=== PATIENT | male | born 1980 | race Caucasian/White ===

== ENCOUNTER 2017-02-16 15:27 | Inpatient (IN) | payer OTHER ==
[~2017-02-16] VITALS: Ht 188 cm; Wt 122.7 kg
[~2017-02-16 15:27] MED LIST: LITH8SYP PO; LORA-474 PO; PRAZ1 PO; PRIL20CA9 PO; SERO400T PO; ZOLO50TA PO
[2017-02-16 15:29] VITALS: BP 166/112; PULSE 98; RESP 24; TEMP 98.9; O2SAT 98
--- NOTE | 2017-02-16 16:10 | PD ---
Physical Exam Time Seen by Provider: 16:10 Narrative 36 y/o male here for evaluation of 2 days vomiting; today he was stuttering and muttering according to . Vital signs reviewed. Seen at triage desk. Awaiting bed placement. Data Data Last Documented VS Vital Signs Date Time Temp Pulse Resp B/P Pulse Ox O2 Delivery O2 Flow Rate FiO2 02/16/17 15:29 98.9 98 24 166/[address] [facility] Medical Record Reviewed: Yes Supervised Visit with FRANCES: Pawan Dozier Feb 16, 2017 16:10
[2017-02-16] MEDS ORDERED: PRIL20TA2 (20:13)
[2017-02-16] MEDS ORDERED: PRAZ5CAP PO (20:13)
[2017-02-16 20:14] VITALS: BP 164/113; PULSE 63; RESP 20; O2SAT 100
[2017-02-16] MEDS ORDERED: SUBO8MIS SL (20:14)
[2017-02-16] MEDS ORDERED: ONDANSETRON HCL 4 MG/2 ML VIAL IM ONE (20:30)
[2017-02-16 21:54] LABS: AUTOMATED NEUTROPHIL # 1.7 TH/MM3 (1.8-7.7); BASOPHIL # 0.1 TH/MM3 (0-0.2); BASOPHIL % 1.3 % (0.0-2.0); EOSINOPHIL # 0.2 TH/MM3 (0-0.4); EOSINOPHIL % 3.9 % (0.0-4.0); HEMATOCRIT 40.5 % (39.0-51.0); HEMO FLAGS DIFF FINAL; LYMPH % 44.9 % (9.0-44.0); LYMPHOCYTE # 1.9 TH/MM3 (1.0-4.8); MEAN CELL VOLUME 80.7 FL (80.0-100.0); MEAN CORPUSCULAR HEMOGLOBIN 26.7 PG (27.0-34.0); MEAN CORPUSCULAR HGB CONC 33.1 % (32.0-36.0); NEUT % 39.9 % (16.0-70.0); PLATELET COUNT 332 TH/MM3 (150-450); RED BLOOD COUNT 5.02 MIL/MM3 (4.50-5.90); RED CELL DISTRIBUTION WIDTH 14.3 % (11.6-17.2); WHITE BLOOD COUNT 4.3 TH/MM3 (4.0-11.0)
[2017-02-16 22:04] LABS: APTT (PATIENT) 26.8 SEC (24.3-30.1); PROTHROMBIN TIME - PATIENT 11.1 SEC (9.8-11.6)
[2017-02-16 22:08] LABS: ANION GAP 8 MEQ/L (5-15); AST (GOT) 19 U/L (15-37); BICARBONATE 27.4 MEQ/L (21.0-32.0); BLOOD UREA NITROGEN 8 MG/DL (7-18); CHLORIDE 104 MEQ/L (98-107); GLOMERULAR FILTRATION RATE 81 ML/MIN (>89); POTASSIUM 3.3 MEQ/L (3.5-5.1); SODIUM (NA) 139 MEQ/L (136-145)
[2017-02-16 22:09] LABS: ALT (GPT) 29 U/L (12-78)
[2017-02-16 22:11] LABS: ALKALINE PHOSPHATASE 126 U/L (45-117); TOTAL BILIRUBIN ADULT 0.8 MG/DL (0.2-1.0)
[2017-02-16] MEDS ORDERED: SODIUM CHLOR 0.9% 1000 ML INJ 1,000 ML IV ONE (22:15)
[2017-02-16] MEDS ORDERED: LORazepam 2 MG/ML VIAL IV PUSH ONE (22:15)
[2017-02-16 22:31] VITALS: BP 148/87; PULSE 71; RESP 18; O2SAT 98
--- NOTE | 2017-02-16 22:40 | RADRPT ---
EXAM DATE/TIME: 02/16/2017 22:18 [place] COMPARISON: CT BRAIN W/O CONTRAST, July 03, 2016, 9:08. INDICATIONS : Altered mental status, slurred speech and left arm numbness. RADIATION DOSE: 56.35 CTDIvol (mGy) MEDICAL HISTORY : None SURGICAL HISTORY : Tympanostamy tube. ENCOUNTER: Initial ACUITY: 2 days PAIN SCALE: 0/10 LOCATION: cranial TECHNIQUE: Multiple contiguous axial images were obtained of the head. Using automated exposure control and adj ustment of the mA and/or kV according to patient size, radiation dose was kept as low as reasonably a chievable to obtain optimal diagnostic quality images. DICOM format image data is available electro nically for review and comparison. FINDINGS: There is no evidence for intracranial hemorrhage, mass effect, mass lesions, edema, or extra-axial fl uid collections. The visualized bony structures appear intact. The ventricles are normal size for t he patient's age. There are no signs of acute infarction for technique. CONCLUSION: Unremarkable study. Kristin Mcclellan MD on February 16, 2017 at 22:37 Board Certified Radiologist. This report was verified electronically.
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
[2017-02-16 23:26] LABS: AMPHETAMINE, URINE NEG (NEG); BARBITURATES, URINE NEG (NEG); COCAINE, URINE NEG (NEG)
[2017-02-16 23:27] LABS: BLOOD, URINE NEG (NEG); COMMENT (UR) CULT NOT INDICATED; CULTURE IF INDICATED CULT NOT INDICATED; GLUCOSE,URINE NEG (NEG); KETONE, URINE NEG (NEG); MUCUS URINE FEW /lpf (OCC); NITRITE,URINE NEG (NEG); URINE COLOR YELLOW (YELLW/STRAW)
[2017-02-17] VITALS (7 sets, daily range): BP systolic 117–169; BP diastolic 74–95; PULSE 59–78; RESP 16–18; TEMP 96.7–98.1; O2SAT 96–99
[2017-02-17] MEDS ORDERED: MAGNESIUM HYDROXIDE SUSP 30 ML CUP PO PRN (00:30)
[2017-02-17] MEDS ORDERED: SENNOSIDES 8.6 MG TAB PO PRN (00:30)
[2017-02-17] MEDS ORDERED: NALOXONE HCL 0.4 MG/ML AMP IV PRN (00:30)
[2017-02-17] MEDS ORDERED: BISACODYL 10 MG SUPP RECTAL PRN (00:30)
[2017-02-17] MEDS ORDERED: SODIUM CHLORIDE 0.9% FLUSH 10 ML FLUSH IV FLUSH PRN (00:30)
[2017-02-17] MEDS ORDERED: LACTULOSE SYRUP 20 GM/30 ML CUP PO PRN (00:30)
[2017-02-17] MEDS ORDERED: LORazepam 1 MG TAB PO PRN (00:45)
[2017-02-17] MEDS: SERTRALINE HCL 50 MG TAB PO SCH (08:11)
[2017-02-17] MEDS: DOCUSATE SODIUM 50 MG/SENNA 8.6 MG TAB PO SCH ×2 (08:11→20:17)
[2017-02-17] MEDS: LITHIUM ORAL SOLUTION 300 MG/5 ML CUP PO SCH ×3 (08:12→17:52)
[2017-02-17] MEDS ORDERED: PRAZOSIN HCL 5 MG CAP PO SCH ×2 (09:00→21:00)
[2017-02-17] MEDS ORDERED: ONDANSETRON HCL 4 MG/2 ML VIAL IV PUSH PRN (10:30)
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
[2017-02-17] MEDS: PANTOPRAZOLE SOD 40 MG DELAYED RELEASE TAB PO SCH (12:52)
[2017-02-17] MEDS: D5-NS + KCL 20 MEQ INJ 1,000 ML IV SCH (12:54)
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
[2017-02-17] MEDS ORDERED: GADODIAMIDE PF 287 MG/ML 20 ML VIAL (for RAD MRI) IV ONE (19:49)
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
[2017-02-17] MEDS: SODIUM CHLORIDE 0.9% FLUSH 10 ML FLUSH IV FLUSH SCH (20:17)
--- NOTE | 2017-02-17 20:43 | RADRPT ---
EXAM DATE/TIME: 02/17/2017 19:30 [place] COMPARISON: CT BRAIN W/O CONTRAST, February 16, 2017, 22:18. INDICATIONS : Slurred speech. CONTRAST: 20 cc Omniscan (gadodiamide) IV MEDICAL HISTORY : Pancreatitis. SURGICAL HISTORY : Cholecystectomy. Cleft palat repair, nasal revision, jaw surgery ENCOUNTER: Initial ACUITY: 1 day PAIN SCORE: 0/10 LOCATION: cranial TECHNIQUE: Multiplanar, multisequence MRI of the brain was performed both prior to and following the administrat ion of paramagnetic contrast. FINDINGS: CEREBRUM: The ventricles are normal for age. No evidence of midline shift, mass lesion, hemorrhage or acute in farction. No extraaxial fluid collections are seen. The pituitary gland and suprasellar cistern are normal in configuration. WHITE MATTER: No significant signal abnormalities are seen in the white matter. POSTERIOR FOSSA: The cerebellum and brainstem are intact. The 4th ventricle is midline. The cerebellopontine angle is unremarkable. The cerebellar tonsils are normal in position. DIFFUSION IMAGING: No focal areas of restricted diffusion are seen. No evidence of acute infarction. EXTRACRANIAL: The visualized portions of the orbits and paranasal sinuses are unremarkable. POST-CONTRAST: No abnormal areas of parenchymal or dural enhancement. No evidence of blood-brain barrier breakdown. CONCLUSION: Normal MRI of the brain. Сергей Caraballo MD on February 17, 2017 at 20:41 Board Certified Radiologist. This report was verified electronically.
[2017-02-17] MEDS ORDERED: QUEtiapine FUMARATE 100 MG TAB PO SCH (21:00)
[2017-02-17] MEDS: BUPRENORPHINE/NALOXONE 8 MG/2 MG SUBLINGUAL TAB SL SCH (21:56)
[2017-02-18] VITALS: BP 129/55; PULSE 80; RESP 17; TEMP 96.9; O2SAT 97
[2017-02-18 04:00] VITALS: BP 127/64; PULSE 72; RESP 16; TEMP 96.9; O2SAT 94
[2017-02-18 06:49] LABS: AUTOMATED NEUTROPHIL # 1.2 TH/MM3 (1.8-7.7); BASOPHIL # 0.1 TH/MM3 (0-0.2); BASOPHIL % 1.9 % (0.0-2.0); EOSINOPHIL # 0.3 TH/MM3 (0-0.4); EOSINOPHIL % 8.4 % (0.0-4.0); HEMATOCRIT 34.9 % (39.0-51.0); HEMO FLAGS DIFF FINAL; LYMPH % 48.5 % (9.0-44.0); LYMPHOCYTE # 1.9 TH/MM3 (1.0-4.8); MEAN CELL VOLUME 81.6 FL (80.0-100.0); MEAN CORPUSCULAR HEMOGLOBIN 26.4 PG (27.0-34.0); MEAN CORPUSCULAR HGB CONC 32.3 % (32.0-36.0); MONO % 10.2 % (0.0-8.0); PLATELET COUNT 240 TH/MM3 (150-450); RED BLOOD COUNT 4.27 MIL/MM3 (4.50-5.90); RED CELL DISTRIBUTION WIDTH 14.1 % (11.6-17.2)
[2017-02-18 07:02] LABS: ALKALINE PHOSPHATASE 90 U/L (45-117); ALT (GPT) 24 U/L (12-78); ANION GAP 9 MEQ/L (5-15); AST (GOT) 19 U/L (15-37); BICARBONATE 26.2 MEQ/L (21.0-32.0); BLOOD UREA NITROGEN 6 MG/DL (7-18); CHLORIDE 110 MEQ/L (98-107); GLOMERULAR FILTRATION RATE 78 ML/MIN (>89); POTASSIUM 3.6 MEQ/L (3.5-5.1); SODIUM (NA) 145 MEQ/L (136-145); TOTAL BILIRUBIN ADULT 0.3 MG/DL (0.2-1.0)
[2017-02-18 08:00] VITALS: BP 117/65; PULSE 66; RESP 18; TEMP 97.7; O2SAT 99
[2017-02-18 09:00] VITALS: PULSE 73
[2017-02-18] MEDS: DOCUSATE SODIUM 50 MG/SENNA 8.6 MG TAB PO SCH (09:00)
[2017-02-18] MEDS: SODIUM CHLORIDE 0.9% FLUSH 10 ML FLUSH IV FLUSH SCH (09:00)
[2017-02-18] MEDS: LITHIUM ORAL SOLUTION 300 MG/5 ML CUP PO SCH ×2 (09:01→12:47)
[2017-02-18] MEDS: PANTOPRAZOLE SOD 40 MG DELAYED RELEASE TAB PO SCH (09:01)
[2017-02-18] MEDS: SERTRALINE HCL 50 MG TAB PO SCH (09:01)
[2017-02-18] MEDS: BUPRENORPHINE/NALOXONE 8 MG/2 MG SUBLINGUAL TAB SL SCH (09:01)
[2017-02-18] MEDS: D5-NS + KCL 20 MEQ INJ 1,000 ML IV SCH (09:08)
--- NOTE | 2017-02-18 11:22 | HHI.PR ---
Subjective Remarks slept well back to nl acc to pt and Objective Vital Signs Date Time Temp Pulse Resp B/P Pulse Ox O2 Delivery O2 Flow Rate FiO2 02/18/17 08:00 97.7 66 18 117/65 99 02/18/17 04:00 96.9 72 16 127/64 94 02/18/17 00:00 96.9 80 17 129/55 97 02/17/17 20:48 78 02/17/17 19:00 97.6 77 16 156/93 99 02/17/17 15:51 96.8 68 18 131/74 96 02/17/17 11:32 98.0 74 18 142/95 97 I/O 02/17/17 02/17/17 02/17/17 02/18/17 02/18/17 02/18/17 07:00 15:00 23:00 07:00 15:00 23:00 Intake Total 0 ml 960 ml 280 ml 940 ml Balance 0 ml 960 ml 280 ml 940 ml Intake Oral 0 ml 960 ml 480 ml IV Total 280 ml 460 ml # Voids 0 4 2 # Bowel Movements 2 0 Result Diagram: 02/18/17 0546 02/18/17 0546 Objective Remarks awake alert nl speech moves all well Assessment and Plan Assessment and Plan imp mri nl labs nl pancreatic labs nl eeg prelim neg ok dc by ct Claudio Graham MD Feb 18, 2017 11:22
[2017-02-18 12:00] VITALS: BP 139/91; PULSE 74; RESP 18; TEMP 97; O2SAT 100
--- NOTE | 2017-02-18 14:48 | HHI.DS ---
Discharge Summary Admission Date Feb 16, 2017 at 23:58 Admitting Diagnosis mental status change pt had not slept for several days suffers with PTSD CBC/BMP: 02/18/17 0546 02/18/17 0546 Significant Findings Laboratory Tests Test 02/16/17 02/16/17 02/17/17 02/17/17 21:15 22:50 01:25 21:35 Mean Corpuscular Hemoglobin 26.7 PG (27.0-34.0) Lymphocytes (%) (Auto) 44.9 % (9.0-44.0) Monocytes (%) (Auto) 10.0 % (0.0-8.0) Neutrophils # (Auto) 1.7 TH/MM3 (1.8-7.7) Potassium Level 3.3 MEQ/L (3.5-5.1) Estimat Glomerular Filtration 81 ML/MIN (>89) Rate Random Glucose 107 MG/DL (74-106) Alkaline Phosphatase 126 U/L (45-117) Urine Mucus FEW /lpf (OCC) [place] Level 0.2 MEQ/L (0.5-1.5) Erythrocyte Sedimentation Rate 19 mm/hr (0-15) Test 02/18/17 05:46 Red Blood Count 4.27 MIL/MM3 (4.50-5.90) Hemoglobin 11.3 GM/DL (13.0-17.0) Hematocrit 34.9 % (39.0-51.0) Mean Corpuscular Hemoglobin 26.4 PG (27.0-34.0) Lymphocytes (%) (Auto) 48.5 % (9.0-44.0) Monocytes (%) (Auto) 10.2 % (0.0-8.0) Eosinophils (%) (Auto) 8.4 % (0.0-4.0) Neutrophils # (Auto) 1.2 TH/MM3 (1.8-7.7) Chloride Level 110 MEQ/L (98-107) Blood Urea Nitrogen 6 MG/DL (7-18) Estimat Glomerular Filtration 78 ML/MIN (>89) Rate Calcium Level 8.4 MG/DL (8.5-10.1) Albumin 3.0 GM/DL (3.4-5.0) Pt Condition on Discharge: Good Discharge Disposition: Discharge Home Discharge Instructions DIET: Follow Instructions for: Heart Healthy Diet Activities you can perform: Regular-No Restrictions Continued Medications: Buprenorphine-Naloxone Sublingual Film (Suboxone Sublingual Film) 8-2 Mg Film 1 FILM SL Unique ID number required: FILM [place] Liq ([place] Liq) 300 Mg/5 Ml Liq 300 MG PO TID behavior disorder Days 30 ML Lorazepam (Ativan) 1 Mg Tab 1 MG PO Q4H PRN for severe anxiety or dyspnea Ref 0 TAB Omeprazole Magnesium (Prilosec) 20 Mg Tab Prazosin (Prazosin) 5 Mg Cap 5 MG PO DAILY Blood Pressure Management #60 Ref 0 CAP Quetiapine (Seroquel) 400 Mg Tab 100 MG PO HS Psychiatric disorder #30 Ref 0 TAB Sertraline (Zoloft) 50 Mg Tab 50 MG PO DAILY depression Days 30 TAB Additional Information pt will consider otc melatonin 5mg sl for sleep induction Alen Cruz DO Feb 18, 2017 14:48
--- NOTE | 2017-02-18 20:09 | MG ---
cc: TRENT GARVEY Lab No: [id number] Date: 02/18/17 Age: 36 Sex: M Race: Sleep-deprivation caused some delirium in this patient. Diffuse alpha and beta rhythms are noted. The recording overall is synchronous and symmetric, ___ some diffuse. 6 Hz slowing is seen, even down to 5 Hz. Symmetric and synchronous. No epileptiform or seizure activity is noted. There were no hemisphere asymmetries. Hyperventilation was performed without significant change in the background. Photic stimulation was performed without any posterior driving. IMPRESSION Some mild diffuse theta slowing, otherwise unremarkable recording. No seizure activity was seen. No focal abnormalities were noted. MD FIONA Lynn/RUBÉN /7:52 PM /8:08 PM
[2017-02-20 11:26] LABS: RAPID PLASMA REAGIN SCREEN NON-REACTIVE (NON-REACTVE)
[2017-02-20 14:45] LABS: ANA SCREEN NEG (NEG)
== END 2017-02-18 16:22 | disposition home or self-care (01) | DRG 948 ==
LOC: NEPE 15:27 → NEDA 23:58 → N06B 02-17 01:30
PROVIDERS: ADMIT Family Medicine; ATTEND Family Medicine
DX: R41.82 Altered mental status, unspecified (principal); F05 Delirium due to known physiological condition; R47.01 Aphasia; Z72.820 Sleep deprivation; F11.24 Opioid dependence with opioid-induced mood disorder; F43.12 Post-traumatic stress disorder, chronic; R11.2 Nausea with vomiting, unspecified; F31.9 Bipolar disorder, unspecified; F60.3 Borderline personality disorder; F60.81 Narcissistic personality disorder; Z87.820 Personal history of traumatic brain injury; Z91.5 Personal history of self-harm
CPT/HCPCS: 70450; 70553; 80053; 80178; 80307; 81001; 82150; 82607; 83690; 84425; 84443; 85025; 85610; 85652; 85730; 86038; 86592; 95819; 96361; 96374; A9579; J2060; J2405; J3480; J7030

== ENCOUNTER 2017-12-24 16:43 | Emergency (ER) | payer OTHER ==
[~2017-12-24] VITALS: Ht 188 cm; Wt 131.5 kg
[~2017-12-24 16:43] MED LIST changes: -PRAZ1 PO; +PRAZ5CAP PO; -PRIL20CA9 PO; +PRIL20TA2; +SUBO8MIS SL
[2017-12-24 16:59] VITALS: BP 143/92; PULSE 82; RESP 20; TEMP 98; O2SAT 100
[2017-12-24] MEDS ORDERED: ZOLO100T PO (17:17)
[2017-12-24] MEDS ORDERED: CLON0.3T PO (17:17)
[2017-12-24] MEDS ORDERED: FENO145T2 PO (17:17)
[2017-12-24] MEDS ORDERED: AMLO5TAB2 PO (17:17)
[2017-12-24] MEDS ORDERED: PANT20 PO (17:17)
[2017-12-24] MEDS ORDERED: SODIUM CHLORIDE 0.9% FLUSH 10 ML FLUSH IVF PRN (17:30)
--- NOTE | 2017-12-24 17:41 | PD ---
HPI Chief Complaint: Edema Time Seen by Provider: 17:14 Travel History International Travel<30 days: No Contact w/Intl Traveler<30days: No Traveled to known affect area: No History of Present Illness HPI 37-year-old male presents to the emergency department for evaluation of edema to his bilateral lower extremities as well as his bilateral hands. He also reports pain to the bilateral arms from the elbows down. No fevers or chills. He states that he feels short of breath. No abdominal pain. No nausea, vomiting, diarrhea. Patient states that he went to [facility] and was given Lasix. He took the Lasix for the 5 days which improved his symptoms. However, symptoms returned after the Lasix was finished. He has not followed up with a primary care physician. He reports history of opiate addiction, but states he is on Suboxone has not abused drugs in a year. Moderate severity. PFSH Past Medical History Arthritis: No Asthma: No Autoimmune Disease: No Blood Disorders: No Anxiety: Yes Depression: Yes Heart Rhythm Problems: No Cancer: No Cardiac Catheterization: No Cardiovascular Problems: No High Cholesterol: No Chemotherapy: No Chest Pain: No Congestive Heart Failure: No COPD: No Cerebrovascular Accident: No Diabetes: No Diminished Hearing: No Endocrine: No Gastrointestinal Disorders: Yes (chronic pancreatitis) GERD: Yes Genitourinary: No Hepatitis: No Hiatal Hernia: Yes Hypertension: No Immune Disorder: No Inguinal Hernia: Yes Implanted Vascular Access Dvce: No Kidney Stones: No Musculoskeletal: No Neurologic: Yes Psychiatric: Yes Reproductive: No Respiratory: No Immunizations Current: Yes Migraines: No Myocardial Infarction: No Pancreatitis: Yes Pneumonia: Yes Radiation Therapy: No Renal Failure: No Seizures: No Sickle Cell Disease: No Sleep Apnea: No Thyroid Disease: No Ulcer: No Past Surgical History Abdominal Surgery: Yes (ERCP stents applied , EUS, J TUBE INSERTION AND REMOVAL , HERNIA REPAIR, gal) AICD: No Arteriovenous Shunt: No Cardiac Surgery: No Cholecystectomy: Yes (2005) Coronary Artery Bypass Graft: No Ear Surgery: Yes (TUBES) Endocrine Surgery: No Eye Surgery: No Genitourinary Surgery: No Gynecologic Surgery: No Insulin Pump: No Joint Replacement: No Oral Surgery: Yes (JAW, CLEFT LIP AND PALLET REPAIR) Pacemaker: No Thoracic Surgery: No Tympanostomy Tube: Yes Valve Replacement: Yes (HERNIA SURGERY) Other Surgery: Yes (ERCP, BILIARY AND PANCREATIC STENT REMOVAL ) Social History Alcohol Use: Yes (occasional) Tobacco Use: No Substance Use: No (quit opiate abuse 02/08/16) Allergies-Medications (Allergen,Severity, Reaction): Coded Allergies: amoxicillin (Unverified Allergy, Severe, Rash, 12/24/17) DENIES ALLERGY ON FURTHER TESTING (12/07/11) cefaclor (Unverified Allergy, Severe, Rash, 12/24/17) clavulanic acid (Unverified Allergy, Severe, Rash, 12/24/17) DENIES ALLERGY ON FURTHER TESTING (12/07/11) metoclopramide (Unverified Adverse Reaction, Severe, Irritability/Anxiety , 12/24/17) MAKES ME CRAZY Reported Meds & Prescriptions Reported Meds & Active Scripts Active Reported Zoloft (Sertraline HCl) 100 Mg Tab 100 Mg PO DAILY Clonidine (Clonidine HCl) 0.3 Mg Tab 0.3 Mg PO HS Amlodipine (Amlodipine Besylate) 5 Mg Tab 5 Mg PO DAILY Fenofibrate 145 Mg Tab 145 Mg PO DAILY Protonix (Pantoprazole Sodium) 20 Mg Tab 20 Mg PO BID Suboxone Sublingual Film (Buprenorphine-Naloxone Sublingual Film) 8-2 Mg Film 1 Film SL Unique ID number required: Review of Systems Except as stated in HPI: all other systems reviewed are Neg Physical Exam Narrative GENERAL: Well-nourished, well-developed male patient, afebrile. SKIN: Focused skin assessment warm/dry. HEAD: Normocephalic. Atraumatic EYES: No scleral icterus. No injection or drainage. NECK: Supple, trachea midline. No JVD or lymphadenopathy. CARDIOVASCULAR: Regular rate and rhythm without murmurs, gallops, or rubs. Bilateral radial and pedal pulses are 2+. RESPIRATORY: Breath sounds equal bilaterally. No accessory muscle use. Lung sounds are clear to auscultation. GASTROINTESTINAL: Abdomen soft, non-tender, nondistended. MUSCULOSKELETAL: No cyanosis, or edema. BACK: Nontender without obvious deformity. No CVA tenderness. Data Data Last Documented VS Vital Signs Date Time Temp Pulse Resp B/P (MAP) Pulse Ox O2 Delivery O2 Flow Rate FiO2 12/24/17 17:55 67 17 121/71 (88) 97 Room Air 12/24/17 16:59 98.0 Orders Orders Electrocardiogram (12/24/17 17:25) Basic Metabolic Panel (Bmp) (12/24/17 17:25) B-Type Natriuretic Peptide (12/24/17 17:25) Ckmb (Isoenzyme) Profile (12/24/17) Complete Blood Count With Diff (12/24/17:25) Magnesium (Mg) (12/24/17:25) Prothrombin Time / Inr (Pt) (12/24/17) Act Partial Throm Time (Ptt) (12/24/17) Troponin I (12/24/17:) Chest, Single Ap (12/24/17) Ecg Monitoring (12/24/17) Bilateral Bp Monitoring (12/24/17:) Iv Access Insert/Monitor (12/24/17) Oximetry (12/24/17) Oxygen Administration (12/24/17:) Sodium Chloride 0.9% Flush (Ns Flush) (12/24/17 17:30) Us Leg Venous Doppler Bilat (12/24/17 ) Labs Laboratory Tests Test 12/24/17 17:40 12/24/17 18:36 White Blood Count 5.0 TH/MM3 Red Blood Count 4.45 MIL/MM3 Hemoglobin 13.1 GM/DL Hematocrit 38.4 % Mean Corpuscular Volume 86.2 FL Mean Corpuscular Hemoglobin 29.5 PG Mean Corpuscular Hemoglobin Concent 34.2 % Red Cell Distribution Width 15.4 % Platelet Count 244 TH/MM3 Mean Platelet Volume 10.1 FL Neutrophils (%) (Auto) 51.4 % Lymphocytes (%) (Auto) 31.3 % Monocytes (%) (Auto) 9.2 % Eosinophils (%) (Auto) 7.1 % Basophils (%) (Auto) 1.0 % Neutrophils # (Auto) 2.6 TH/MM3 Lymphocytes # (Auto) 1.6 TH/MM3 Monocytes # (Auto) 0.5 TH/MM3 Eosinophils # (Auto) 0.4 TH/MM3 Basophils # (Auto) 0.1 TH/MM3 CBC Comment DIFF FINAL Differential Comment B-Type Natriuretic Peptide 51 PG/ML Prothrombin Time 10.0 SEC Prothromb Time International Ratio 1.0 RATIO Activated Partial Thromboplast Time 24.0 SEC Blood Urea Nitrogen 11 MG/DL Creatinine 1.41 MG/DL Random Glucose 145 MG/DL Calcium Level 8.8 MG/DL Magnesium Level 1.8 MG/DL Sodium Level 143 MEQ/L Potassium Level 3.6 MEQ/L Chloride Level 108 MEQ/L Carbon Dioxide Level 26.5 MEQ/L Anion Gap 9 MEQ/L Estimat Glomerular Filtration Rate 57 ML/MIN Total Creatine Kinase 91 U/L Troponin I LESS THAN 0.02 NG/ML MDM Medical Decision Making Medical Screen Exam Complete: Yes Emergency Medical Condition: Yes Medical Record Reviewed: Yes Interpretation(s) Last Impressions Chest X-Ray 12/24/17 1725 Signed Impressions: Service Date/Time: Sunday, December 24, 2017 17:38 - CONCLUSION: 1. No acute cardiopulmonary disease. Moe Herring MD Lower Extremity Ultrasound 12/24/17 0000 Signed Impressions: Service Date/Time: Sunday, December 24, 2017 18:34 - CONCLUSION: 1. No sonographic evidence for lower extremity DVT. Moe Herring MD Differential Diagnosis Edema versus CHF versus URI versus pneumonia versus ACS Narrative Course 37-year-old male presents to the emergency department for evaluation of bilateral lower extremity edema. He does appear well on exam. EKG, CBC, BMP, BNP, CK, magnesium, troponin, PTT, PT/INR, chest x-ray, ultrasound the bilateral lower extremities are ordered and pending peer EKG shows SR, HR 75, no acute ST changes. CBC shows no acute abnormality. BMP shows creatinine 1.41. BNP is 51. CK is 90. Troponin is less than 0. Coags are unremarkable. Chest x-ray shows no acute cardiopulmonary disease. US is negative for DVT. I discussed results with the patient. I instructed him on the need to follow- up with a primary care physician. There is no evidence of blood clots or CHF. Patient verbalizes agreement. He is requesting a note to return to work. Patient instructed to elevate his feet and wear compression stockings. He is to return here for any acute worsening of symptoms. The patient was discharged in stable condition with instructions, including return instructions and follow up instructions. Diagnosis Primary Impression: Lower extremity edema Referrals: Primary Care Physician call for appointment Patient Instructions: General Instructions, Leg Edema (ED) Additional Instructions: Elevate your feet. Wear compression stockings Follow-up with a primary care physician. Return to the emergency department for any acute worsening of symptoms. Med/Other Pt SpecificInfo: No Change to Meds Disposition: 01 DISCHARGE HOME Condition: Stable Ailin [place] December 24, 2017 17:41
--- NOTE | 2017-12-24 17:51 | RADRPT ---
EXAM DATE/TIME: 12/24/2017 17:38 [facility] COMPARISON: CHEST SINGLE AP, July 01, 2016, 5:48. INDICATIONS : Chest pain MEDICAL HISTORY : Venous insufficiency. Pancreatitis. SURGICAL HISTORY : Cholecystectomy. Cleft palat repair, nasal revision, jaw surgery ENCOUNTER: Initial ACUITY: 3 days PAIN SCORE: 4/10 LOCATION: chest FINDINGS: A single view of the chest demonstrates the lungs to be symmetrically aerated without evidence of mas s, infiltrate or effusion. The cardiomediastinal contours are unremarkable. Osseous structures are intact. CONCLUSION: 1. No acute cardiopulmonary disease. Moe Herring MD on December 24, 2017 at 17:49 Board Certified Radiologist. This report was verified electronically.
[2017-12-24 17:55] VITALS: BP 121/71; PULSE 67; RESP 17; O2SAT 97
[2017-12-24 18:01] LABS: AUTOMATED NEUTROPHIL # 2.6 TH/MM3 (1.8-7.7); BASOPHIL # 0.1 TH/MM3 (0-0.2); EOSINOPHIL # 0.4 TH/MM3 (0-0.4); EOSINOPHIL % 7.1 % (0.0-4.0); HEMATOCRIT 38.4 % (39.0-51.0); HEMOGLOBIN 13.1 GM/DL (13.0-17.0); LYMPH % 31.3 % (9.0-44.0); LYMPHOCYTE # 1.6 TH/MM3 (1.0-4.8); MEAN CELL VOLUME 86.2 FL (80.0-100.0); MEAN CORPUSCULAR HEMOGLOBIN 29.5 PG (27.0-34.0); MEAN CORPUSCULAR HGB CONC 34.2 % (32.0-36.0); MEAN PLATELET VOLUME 10.1 FL (7.0-11.0); MONO % 9.2 % (0.0-8.0); MONOCYTE # 0.5 TH/MM3 (0-0.9); NEUT % 51.4 % (16.0-70.0); PLATELET COUNT 244 TH/MM3 (150-450); RED BLOOD COUNT 4.45 MIL/MM3 (4.50-5.90); RED CELL DISTRIBUTION WIDTH 15.4 % (11.6-17.2)
--- NOTE | 2017-12-24 19:07 | RADRPT ---
EXAM DATE/TIME: 12/24/2017 18:34 [facility] COMPARISON: No previous studies available for comparison. INDICATIONS : Bilateral leg swelling. MEDICAL HISTORY : Hernia, hiatal. Pancreatitis. Gastroesophageal reflux disease. SURGICAL HISTORY : Cholecystectomy. Hernia repair. Right knee. Jaw. Cleft lip and pallet. ENCOUNTER: Initial ACUITY: 1 day PAIN SCORE: 4/10 LOCATION: Bilateral leg. TECHNIQUE: Venous ultrasound of the left and right leg was performed from the inguinal ligament to the proximal calf. Real-time, color Doppler and spectral tracing, compression and augmentation techniques were us ed. FINDINGS: RIGHT LEG: There is normal compressibility of the deep venous system from the inguinal region to the proximal ca lf. No echogenic clot is seen in the lumen of the common femoral, femoral, popliteal, and posterior tibial veins. There is a normal response of the venous system to proximal and distal augmentation an d respiration. LEFT LEG: There is normal compressibility of the deep venous system from the inguinal region to the proximal ca lf. No echogenic clot is seen in the lumen of the common femoral, femoral, popliteal, and posterior tibial veins. There is a normal response of the venous system to proximal and distal augmentation an d respiration. CONCLUSION: 1. No sonographic evidence for lower extremity DVT. Moe Herring MD on December 24, 2017 at 19:05 Board Certified Radiologist. This report was verified electronically.
[2017-12-24 19:21] LABS: BICARBONATE 26.5 MEQ/L (21.0-32.0); BLOOD UREA NITROGEN 11 MG/DL (7-18); CALCIUM 8.8 MG/DL (8.5-10.1); CHLORIDE 108 MEQ/L (98-107); CREATININE 1.41 MG/DL (0.60-1.30); GLOMERULAR FILTRATION RATE 57 ML/MIN (>89); GLUCOSE,RANDOM 145 MG/DL (74-106); MAGNESIUM 1.8 MG/DL (1.5-2.5); SODIUM (NA) 143 MEQ/L (136-145)
[2017-12-24 19:25] LABS: TROPONIN I LESS THAN 0.02 NG/ML (0.02-0.05)
[2017-12-24 21:10] VITALS: BP 127/70; PULSE 70; RESP 18; O2SAT 99
--- NOTE | 2017-12-24 22:42 | EKG ---
Date Performed: 12/24/2017 Time Performed: 17:28:07 PTAGE: 37 years EKG: Sinus rhythm NORMAL ECG NO PREVIOUS TRACING DOCTOR: Hernan Moran Interpretating Date/Time 12/24/2017 22:41:30
== END 2017-12-24 21:11 | disposition home or self-care (01) ==
LOC: NEPE 16:43
DX: R60.0 Localized edema (principal); M79.631 Pain in right forearm; M79.632 Pain in left forearm; R06.02 Shortness of breath; K21.9 Gastro-esophageal reflux disease without esophagitis; F41.8 Other specified anxiety disorders; Z79.899 Other long term (current) drug therapy; Z87.19 Personal history of other diseases of the digestive system; Z86.69 Personal history of other diseases of the nervous system and sense organs
CPT/HCPCS: 71045; 80048; 82550; 83735; 83880; 84484; 85025; 85610; 85730; 93005; 93970; 99285